=== PATIENT | female | born 1930 | race Caucasian/White ===

== ENCOUNTER → 2016-08-18 | Outpatient (CLI) | payer OTHER | LOC: CIMAGING 10:29 | DX: Z12.31 Encounter for screening mammogram for malignant neoplasm of breast (principal) | CPT/HCPCS: G0202 ==

== ENCOUNTER 2017-10-27 19:04 | Emergency (ER) | payer OTHER ==
[2017-10-27] MEDS ORDERED: NS 1,000 ML IV ONE (19:16)
--- NOTE | 2017-10-27 19:34 | EDPHY ---
H & P Stated Complaint: Diarrhea [id number] post antibiotics Time Seen by Provider: 10/27/17 19:16 HPI/ROS: CHIEF COMPLAINT: Diarrhea x2 weeks HISTORY OF PRESENT ILLNESS: The patient presents to the ED with a 2 week history of diarrhea. Patient reports that she had been on Augmentin for a sinus infection approximately 1 month ago. The patient is anticoagulated with warfarin for AFib. The patient was seen by her primary care provider yesterday who performed laboratory studies which demonstrated normal CBC and an INR of 3. The patient dropped off a stool sample for analysis today. The results of that are still pending. The patient reports she had multiple episodes of nonbloody diarrhea last night. She noticed a small amount of hematochezia with diarrhea today. She presents to the ED secondary to the frequency of her diarrhea, mild intestinal bloating and generalized weakness. REVIEW OF SYSTEMS: A comprehensive 10 point review of systems is otherwise negative aside from elements mentioned in the history of present illness. Source: Patient - Personal History Current Tetanus Diphtheria and Acellular Pertussis (TDAP): Yes - Medical/Surgical History Hx Asthma: No Hx Chronic Respiratory Disease: No Hx Diabetes: No Hx Cardiac Disease: Yes Hx Renal Disease: No Hx Cirrhosis: No Hx Alcoholism: No Hx HIV/AIDS: No Hx Splenectomy or Spleen Trauma: No Other PMH: cataract. tonsilectomy. hyst. vein strip. parotid tumor. afib - Social History Smoking Status: Never smoked - Physical Exam Exam: General Appearance: Elderly female, no acute distress Eyes: Pupils equal and round no pallor or injection ENT, Mouth: Mucous membranes moist Respiratory: There are no retractions, lungs are clear to auscultation Cardiovascular: Regular rate and rhythm Gastrointestinal: Slightly distended, soft, normal bowel sounds Neurological: 5/5 strength all 4 extremities Skin: Warm and dry, no rashes Musculoskeletal: Neck is supple nontender Extremities: symmetrical, full range of motion Constitutional: Initial Vital Signs Temperature (C) 36.7 C 10/27/17 19:08 Heart Rate 85 10/27/17 19:08 Respiratory Rate 18 10/27/17 19:08 Blood Pressure 111/70 10/27/17 19:08 O2 Sat (%) 96 10/27/17 19:08 O2 Delivery Mode Room Air Allergies/Adverse Reactions: morphine Allergy (Verified 10/18/14 10:02) Home Medications: Medication Instructions Recorded Atenolol 07/03/15 Fluticasone Nasal [Flonase Nasal 2 sprays NASAL DAILY #1 mdi 10/18/14 [place] (RX)] Hydrochlorothiazide 10/18/14 Levothyroxine 10/18/14 Ofloxacin 0.3% [Ocuflox 0.3% (RX)] 2 drops EACHEYE Q1 #1 btl 10/18/14 Oxygen 10/18/14 Coumadin 10/27/17 Simvastatin 10/27/17 Valsartan 10/27/17 Medical Decision Making ED Course/Re-evaluation: The patient presents the ED with 2 weeks of diarrhea. The patient did drop a stool sample off today which is not yet resulted. The patient did appear to be clinically dehydrated. She had an IV established he received 2 L of normal saline. She had no recurrent diarrhea in the emergency department. The patient has no fever, leukocytosis or significant abdominal tenderness. The patient was noted to be hyponatremic likely secondary to acute hypokalemia. Patient was offered admission to the hospital in the setting of her mild dehydration and hyponatremia however she prefers to go home. Her mental status is within normal limits. She will contact her physician at the [facility] tomorrow to check on her C diff test. She does understand that she can return to the ED at any time should she reconsider her decision not to be admitted, should she have worsening symptoms, pain or fever. Differential Diagnosis: Differential diagnosis considered includes infectious gastroenteritis, Clostridium difficile colitis, dehydration, metabolic abnormality - Data Points Laboratory Results: Laboratory Results 10/27/17 19:47 10/27/17 19:47 10/27/17 10/27/17 10/27/17 19:47 19:47 19:47 WBC 6.97 10^3/uL 10^3/uL (3.80-9.50) RBC 3.55 10^6/uL L 10^6/uL (4.18-5.33) Hgb 11.4 g/dL L g/dL (12.6-16.3) Hct 32.7 % L % (38.0-47.0) MCV 92.1 fL fL (81.5-99.8) MCH 32.1 pg pg (27.9-34.1) MCHC 34.9 g/dL g/dL (32.4-36.7) RDW 12.4 % % (11.5-15.2) Plt Count 165 10^3/uL 10^3/uL (150-400) MPV 9.5 fL fL (8.7-11.7) Neut % (Auto) 63.1 % % (39.3-74.2) Lymph % (Auto) 20.4 % % (15.0-45.0) [place] % (Auto) 14.9 % H % (4.5-13.0) Eos % (Auto) 1.0 % % (0.6-7.6) Baso % (Auto) 0.3 % % (0.3-1.7) Nucleat RBC Rel Count 0.0 % % (0.0-0.2) Absolute Neuts (auto) 4.40 10^3/uL 10^3/uL (1.70-6.50) Absolute Lymphs (auto) 1.42 10^3/uL 10^3/uL (1.00-3.00) Absolute Monos (auto) 1.04 10^3/uL H 10^3/uL (0.30-0.80) Absolute Eos (auto) 0.07 10^3/uL 10^3/uL (0.03-0.40) Absolute Basos (auto) 0.02 10^3/uL 10^3/uL (0.02-0.10) Absolute Nucleated RBC 0.00 10^3/uL 10^3/uL (0-0.01) Immature Gran % 0.3 % % (0.0-1.1) Immature Gran # 0.02 10^3/uL 10^3/uL (0.00-0.10) PT 37.4 SEC H SEC (12.0-15.0) INR 3.84 H (0.83-1.16) Sodium 122 mEq/L L mEq/L (135-145) Potassium 3.6 mEq/L mEq/L (3.3-5.0) Chloride 90 mEq/L L mEq/L (97-110) Carbon Dioxide 23 mEq/l mEq/l (22-31) Anion Gap 9 mEq/L mEq/L (8-16) BUN 14 mg/dL mg/dL (7-23) Creatinine 0.8 mg/dL mg/dL (0.6-1.0) Estimated GFR > 60 Glucose 105 mg/dL H mg/dL (70-100) Calcium 8.9 mg/dL mg/dL (8.5-10.4) Medications Given: Discontinued Medications Sodium Chloride (Ns) 1,000 mls @ 0 mls/hr IV EDNOW ONE; Wide Open PRN Reason: Protocol Stop: 10/27/17 19:17 Last Admin: 10/27/17 19:45 Dose: 1,000 mls Departure - Departure Disposition: Home, Routine, Self-Care Clinical Impression: Diarrhea, Dehydration, Hyponatremia Condition: Good Instructions: Loperamide (By mouth) Additional Instructions: 1. Please return to the emergency department at any time should you consider your decision not to be admitted, have worsening symptoms, fever, severe pain or other concerns. 2. Please contact Dr. Dimas office tomorrow to check the results of your C diff test. Please ask him to recheck your sodium in the next several days. 3. Please continue Imodium as directed for control of your diarrhea. Referrals: TANISHA ZARAGOZA [Primary Care Provider] - As per Instructions
[2017-10-27 19:55] LABS: PLATELET COUNT 165 10^3/uL (150-400)
[2017-10-27 20:04] LABS: INR 3.84 (0.83-1.16); PROTIME(PATIENT) 37.4 SEC (12.0-15.0)
[2017-10-27 20:49] VITALS: BP 114/59
== END 2017-10-27 20:50 | disposition home or self-care (01) ==
DX: R19.7 Diarrhea, unspecified (principal); E86.0 Dehydration; E87.1 Hypo-osmolality and hyponatremia; E86.9 Volume depletion, unspecified; Z79.01 Long term (current) use of anticoagulants